=== PATIENT | female | born 1985 | race Native Hawaiian/Other Pacific Islander ===

== ENCOUNTER 2018-09-23 05:45 | Day surgery (SDC) | payer MEDICAID ==
[2018-09-18 07:25] VITALS: BMI 31.8
[2018-09-23] MEDS ORDERED: Midazolam 2 MG/2 ML VIAL ONE (07:36)
[2018-09-23] MEDS ORDERED: Propofol 10 mg/ml Inj (20 ML) ONE (07:36)
[2018-09-23] MEDS ORDERED: Lactated Ringer's 1,000 ML IV ONE (08:13)
[2018-09-23] MEDS: HYDROmorphone 0.5 mg/0.5 ml ISec IVP PRN ×2 (08:27→08:45)
[2018-09-23 09:06] VITALS: O2SAT 100
[2018-09-23 12:16] VITALS: RESP 18
[2018-09-23 12:19] VITALS: BP 115/58; PULSE 53; TEMP 97.5
--- NOTE | 2018-09-23 20:36 | OP ---
PROCEDURE DATE: 09/23/2018 PREOPERATIVE DIAGNOSIS: A 33-year-old 1, para 1 with prolonged menometrorrhagia, rule out polyp. POSTOPERATIVE DIAGNOSIS: A 33-year-old 1, para 1 with prolonged menometrorrhagia, rule out polyp. SURGEON: Jason Honeycutt MD ASSISTANT STORE MANAGER: None. ANESTHESIA: General. ANESTHESIOLOGIST: Ha Perez MD COMPLICATIONS: None. PROCEDURE PERFORMED: MyoSure dilatation and curettage, and hysteroscopy. ESTIMATED BLOOD LOSS: 200 mL. DEFICIT: 850 mL. DESCRIPTION OF PROCEDURE: After informed consent was obtained, the patient was brought to the operating room, placed on the table where general anesthesia was given. Once the anesthesia was given, the patient was prepped and draped in a normal sterile fashion. Examination under anesthesia revealed the uterus to be . No pelvic or adnexal masses. Anterior lip of the cervix was grasped with a tenaculum. Gentle dilatation of the cervix was done. After that, hysteroscopy was performed and found the polyp on the posterior wall of the uterus. Pictures were taken and then decision was made to use the MyoSure. MyoSure was used to take out the polyp. After that, sharp curettage of the endometrium was done. The ECC was sent to the Pathology. After that, the tenaculum was taken out. The patient tolerated the procedure well. Lap, sponge, and instrument counts were correct x2. Jason Honeycutt MD
== END 2018-09-23 10:41 | disposition home or self-care (01) ==
LOC: C.SDS 05:45
PROVIDERS: ATTEND Obstetrics & Gynecology
DX: N84.0 Polyp of corpus uteri (principal); N92.1 Excessive and frequent menstruation with irregular cycle
CPT/HCPCS: 58558; 88305; J1100; J1170; J2250; J2405; J2704; J3010; J7120